=== PATIENT | female | born 1945 | race Caucasian/White ===

== ENCOUNTER → 2016-12-06 | Outpatient (CLI) | payer MEDICARE ==
[~2016-12-06] MED LIST: VALA1TAB PO
[2016-12-06 08:27] LABS: FREE T4 1.19 NG/DL (0.76-1.46)
== END ==
LOC: CLAB 06:51
DX: E03.9 Hypothyroidism, unspecified (principal)
CPT/HCPCS: 36415; 84439; 84443

== ENCOUNTER → 2017-04-14 | Outpatient (CLI) | payer MEDICARE ==
[2017-04-14 07:56] LABS: FREE T4 1.16 NG/DL (0.76-1.46)
== END ==
LOC: CLAB 07:00
DX: E03.9 Hypothyroidism, unspecified (principal)
CPT/HCPCS: 36415; 84439; 84443

== ENCOUNTER → 2017-08-18 | Outpatient (CLI) | payer MEDICARE ==
[~2017-08-18] MED LIST changes: +LEVO75TA3 PO; +LOTR15T TOPICAL
[2017-08-18 09:17] LABS: FREE T4 1.43 NG/DL (0.76-1.46)
[2017-08-21 19:52] LABS: THYROGLOB ABS LESS THAN 1 IU/mL (< OR = 1)
== END ==
LOC: CLAB 07:10
DX: E03.9 Hypothyroidism, unspecified (principal)
CPT/HCPCS: 36415; 84439; 84443; 86376; 86800

== ENCOUNTER → 2017-10-17 | Outpatient (CLI) | payer MEDICARE ==
[~2017-10-17] MED LIST changes: -VALA1TAB PO
[2017-10-17 08:27] LABS: FREE T4 1.2 NG/DL (0.76-1.46); HDL CHOLESTEROL 72.7 MG/DL (40.0-60.0)
== END ==
LOC: CLAB 07:21
PROVIDERS: ATTEND Family Medicine
DX: E03.9 Hypothyroidism, unspecified (principal); E78.00 Pure hypercholesterolemia, unspecified
CPT/HCPCS: 36415; 80061; 84439; 84443